=== PATIENT | male | born 1960 | race Caucasian/White ===

== ENCOUNTER 2017-02-02 20:29 | Emergency (ER) | payer OTHER, SELFPAY ==
[~2017-02-02] VITALS: Ht 172.7 cm; Wt 95.3 kg
[2017-02-02] MEDS ORDERED: LOSA25TA5 PO (20:58)
[2017-02-02] MEDS ORDERED: FLUO10CA7 PO (20:58)
[2017-02-02 21:53] LABS: HEMATOCRIT 44.5 % (39.2-51.8); WHITE BLOOD COUNT 19.3 x10^3/uL (3.4-10)
[2017-02-02] MEDS ORDERED: SODIUM CHLORIDE 0.9% 1,000ML IVBOLUS ONE (22:00)
[2017-02-02] MEDS ORDERED: SODIUM CHLORIDE FLUSH 10ML SYR IVF ONE (22:00)
[2017-02-02 22:06] LABS: BLOOD UREA NITROGEN 20 mg/dL (7-18)
[2017-02-02] MEDS ORDERED: CEFDINIR 300 MG CAPSULE PO ONE (23:00)
[2017-02-02 23:17] VITALS: BP 129/89
== END 2017-02-02 23:34 | disposition home or self-care (01) ==
LOC: ED 21:38
DX: N30.01 Acute cystitis with hematuria (principal); I10 Essential (primary) hypertension
CPT/HCPCS: 36415; 76770; 80048; 81001; 82040; 85025; 87077; 87086; 87186; 99285